=== PATIENT | male | born 1995 | race Caucasian/White ===

== ENCOUNTER 2017-01-28 08:18 | Emergency (ER) | payer OTHER ==
[~2017-01-28 08:18] MED LIST: CELEXA PO; EFFEXOR75 M3 PO; FLEXERIL PO; FLEXERIL10 MG PO; IBUPROFEN800 MG PO; LOSARTAN POTASS25 MG; MAGIC MOUTH WASH PO; MOTRIN100 MG PO; MULTI VITAMIN1 EACH PO; NAPROXEN PO; PRILOSEC20 M1 PO; ROBITUSSIN S/F118 ML PO; TOPROL XL100 MG; VOLTAREN75 MG PO; ZITHROMAX PO
[2017-02-17] MEDS ORDERED: TRIAMTERENE-HC1 EAC1 (22:00)
== END 2017-01-28 08:51 | disposition home or self-care (01) ==
LOC: SED 08:18
DX: R04.0 Epistaxis (principal); I10 Essential (primary) hypertension; Z88.0 Allergy status to penicillin; Z88.2 Allergy status to sulfonamides; Z79.899 Other long term (current) drug therapy
CPT/HCPCS: 30901; 99283

== ENCOUNTER 2017-02-17 22:47 | Emergency (ER) | payer OTHER ==
--- NOTE | ~2017-02-17 | CR63 ---
[facility] A Service of [facility] RADIOLOGY TEXT RESULTS PATIENT: SANJUANITA VELA LOCATION: SED : 94 UNIT #: [id number] AGE: [address]: PAIGE MELISSA SEX: M ORDER DR: [id number] [place] [address] [id number] E MR#: [id number] Acc #: [id number] NAME: SANJUANITA VELA : 1995 SEX: M STUDY DATE/TIME: 02/17/2017 22:57 UNIT: SED ROOM: STUDY DESCRIPTION: CR Chest 2 View Attending Physician: Paige Melissa Ordering Physician: Physician Non-Staff Primary Care Physician: Carmella Zhang M.D. MEDICAL IMAGING REPORT This report is preliminary unless electronic signature is present. EXAM Chest x-ray, 02/17/2017. HISTORY A 21-year-old male in the ED complaining of 2-month history of cough with lower back pain and vomiting. TECHNIQUE PA and lateral upright chest series. FINDINGS The examination is negative. The lungs are expanded and clear. No visible pulmonary infiltrate or pleural effusion. Heart size and pulmonary vascularity are within normal limits. IMPRESSION Negative chest. The lungs are clear. No change since 01/05/2017. Dictated by... Ronn Pierre M.D. THIS IS AN ELECTRONICALLY VERIFIED REPORT Ronn Pierre M.D. at 02/18/2017 9:53 PM BOSSMAN/rivera TD: 02/18/2017 06:39 JOB #: [id number] MEDICAL IMAGING REPORT [facility] A Service of [facility] RADIOLOGY TEXT RESULTS PATIENT: SANJUANITA VELA LOCATION: SED : 94 UNIT #: [id number] AGE: [address]: PAIGE MELISSA SEX: M ORDER DR: Page 1 of 1
[~2017-02-17 22:47] MED LIST changes: +TRIAMTERENE-HC1 EAC1
[2017-02-17 23:20] LABS: BASOPHIL# 0.1 X10e3 (0-0.3); BASOPHIL% 0.7 % (0-2.5); EOSINOPHIL# 0.4 X10e3 (0-0.7); HEMATOCRIT 48.2 % (38.0-50.0); HEMOGLOBIN 16.2 gm/dL (13.0-16.0); LYMPHOCYTE# 4.9 X10e3 (1.0-3.5); LYMPHOCYTE% 35.8 % (17.0-45.0); MEAN CELL VOLUME 84.5 FL (83-96); MEAN CORPUSCULAR HEMOGLOBIN 28.4 PG (28-34); MEAN CORPUSCULAR HGB CONC 33.6 g/dL (30-36); MEAN PLATELET VOLUME 7.5 FL (6.5-11.5); MONOCYTE# 1.1 X10e3 (0-1.0); MONOCYTE% 7.8 % (3.0-12.0); NEUTROPHIL# 7.2 X10e3 (1.5-7.1); NEUTROPHIL% 52.7 % (40-75); PLATELET COUNT 351 X10e3 (140-420); RED CELL DISTRIBUTION WIDTH 12.5 % (11.0-15.5); WHITE BLOOD COUNT 13.7 X10e3 (4.0-10.5)
[2017-02-17 23:24] LABS: DIFF IND NO
[2017-02-17 23:38] LABS: BLOOD UREA NITROGEN 19 mg/dL (9-23); BUN/CREATININE RATIO 21.11; CALCIUM SERUM 9.5 mg/dL (8.4-10.2); CARBON DIOXIDE 24 mmol/L (22-31); CHLORIDE 98 mmol/L (100-111); CREATININE SERUM 0.9 mg/dL (0.6-1.4); GLOM FILT RATE Estimated ABOVE60 mL/min (>60); GLUCOSE FASTING 112 mg/dL (70-110); POTASSIUM 3.3 mmol/L (3.5-5.1); SODIUM 134 mmol/L (135-145)
[2017-02-18 00:32] LABS: URINE SOURCE CLEAN CATCH
[2017-02-18 00:45] LABS: MICRO INDICATED? NO; URINE APPEARANCE CLEAR; URINE BILIRUBIN NEG (NEG); URINE BLOOD NEG (NEG); URINE COLOR YELLOW; URINE GLUCOSE NEG (NORM); URINE KETONE NEG (NEG); URINE LEUKOCYTE ESTERASE NEG (NEG); URINE NITRATE NEG (NEG); URINE PROTEIN NEG (NEG); URINE UROBILINOGEN 0.2 MG/DL (NORM)
== END 2017-02-18 01:14 | disposition home or self-care (01) ==
LOC: SED 22:47
PROVIDERS: Physician Assistant
DX: J45.901 Unspecified asthma with (acute) exacerbation (principal); I10 Essential (primary) hypertension; F32.9 Major depressive disorder, single episode, unspecified; F17.210 Nicotine dependence, cigarettes, uncomplicated; Z79.899 Other long term (current) drug therapy; Z88.0 Allergy status to penicillin; Z88.2 Allergy status to sulfonamides
CPT/HCPCS: 36415; 71020; 80048; 81003; 85025; 94640; 96374; 99283; J2405

== ENCOUNTER 2017-06-27 11:56 | Emergency (ER) | payer OTHER ==
--- NOTE | ~2017-06-27 | CT16 ---
[facility]. [facility] A Service of [facility] RADIOLOGY TEXT RESULTS PATIENT: SANJUANITA VELA LOCATION: SED : 94 UNIT #: [id number] AGE: [address]: Marshall Brown MD SEX: M ORDER DR: [id number] [address] [address] [id number] E MR#: [id number] Acc #: [id number] NAME: SANJUANITA VELA : 1995 SEX: M STUDY DATE/TIME: 06/27/2017 14:02 UNIT: SED ROOM: STUDY DESCRIPTION: CT Angio Chest for PE Attending Physician: Marshall Brown M.D. Ordering Physician: Marshall Brown M.D. Primary Care Physician: Carmella Zhang M.D. MEDICAL IMAGING REPORT This report is preliminary unless electronic signature is present. EXAM Angiography CT of the chest, PE protocol, 06/27/2017 INDICATIONS Chest pain and itchy, swollen hands that began this morning. Elevated D-dimer. Elevated white count. History of asthma and hypertension. TECHNIQUE Contrast-enhanced CT scan of the chest PE protocol was performed with 3-D reformats. This CT exam was performed with one or more of the following radiation dose reduction techniques: Automatic exposure control, adjustment of mA and/or kV according to patient size, and iterative reconstruction. No comparisons. FINDINGS CT CHEST: IV bolus suboptimal. The majority of the contrast bolus is in the systemic arterial system. Aorta demonstrates no aneurysm or dissection. There is no large filling defect in the main, left or right central pulmonary arteries. Beyond the first and proximal second-order branches, the pulmonary arteries are not well opacified or assessed. Reactive appearing mediastinal nodes. Residual thymic tissue. Probable reactive axillary nodes. Included upper abdomen negative. Lungs demonstrate no effusion. There are ground-glass areas of consolidation in the lower lobes, left greater than right. There is also patchy involvement of the lingula and right upper lobe. Imaging features nonspecific but likely reflecting areas of multifocal alveolitis. Differential also includes areas of atypical edema or hemorrhage, but those are considered less likely. Imaging followup to resolution after appropriate therapy is recommended. No suspicious bone lesion. IMPRESSION 1. Suboptimal bolus timing but no evidence of PE in the central pulmonary arterial tree. Aorta demonstrates no aneurysm or STS. [facility] A Service of [facility] RADIOLOGY TEXT RESULTS PATIENT: SANJUANITA VELA LOCATION: SED : 94 UNIT #: [id number] AGE: [address]: Marshall Brown MD SEX: M ORDER DR: dissection. 2. Ground-glass consolidation in the lower lobes, left greater than right, with patchy involvement of the lingula and right upper lobe. Imaging features suggest multifocal ground-glass areas of alveolitis or pneumonitis. Imaging followup to resolution recommended. 3. Upper abdomen demonstrates no acute finding. Dictated by... Papito Elizabeth M.D. THIS IS AN ELECTRONICALLY VERIFIED REPORT Papito Elizabeth M.D. at 06/28/2017 11:41 AM TERA/singh TD: 06/27/2017 22:55 JOB #: [id number] MEDICAL IMAGING REPORT Page 1 of 1
--- NOTE | ~2017-06-27 | EKG ---
PATIENT: SANJUANITA VELA UNIT #: [id number] Ventricular Rate: 81 BPM Atrial Rate: 81 BPM P-R Interval: 142 ms QRS Duration: 90 ms Q-T Interval: 400 ms QTC Calculation(Bezet): 464 ms P [place]: 59 degrees Calculated R [place]: 58 degrees Calculated T [place]: 47 degrees Diagnosis Line: Normal sinus rhythm Diagnosis Line: Normal ECG Diagnosis Line: When compared with ECG of 21-AUG-2014 09:58, Diagnosis Line: Nonspecific T wave abnormality, improved in Diagnosis Line: Inferior leads Diagnosis Line: Nonspecific T wave abnormality no longer evident Diagnosis Line: in Anterolateral leads Diagnosis Line: Confirmed by TIAGO MCCLURE MD ([id number]) on Diagnosis Line: 06/28/2017 3:25:36 PM INTERPRETING MD: REN GONG
--- NOTE | ~2017-06-27 | CR72 ---
[facility] A Service of [facility] RADIOLOGY TEXT RESULTS PATIENT: SANJUANITA VELA LOCATION: SED : [birth year] UNIT #: [id number] AGE: [address]: Marshall Brown MD SEX: M ORDER DR: [id number] [place] [address] [id number] E MR#: [id number] Acc #: [id number] NAME: SANJUANITA VELA : 1995 SEX: M STUDY DATE/TIME: 06/27/2017 12:46 UNIT: SED ROOM: STUDY DESCRIPTION: CR Chest Single View Portable Attending Physician: Marshall Brown M.D. Ordering Physician: Marshall Brown M.D. Primary Care Physician: Carmella Zhang M.D. MEDICAL IMAGING REPORT This report is preliminary unless electronic signature is present. EXAM Portable chest INDICATION Chest pain and shortness of air since this morning. PROCEDURE Frontal view chest. COMPARISON 02/17/2017 FINDINGS Heart size is normal. No dense consolidation, pleural fluid or pneumothorax. IMPRESSION No active process. Dictated by... Bobby Stevens M.D. THIS IS AN ELECTRONICALLY VERIFIED REPORT Bobby Stevens M.D. at 06/29/2017 5:02 PM EED/vanessa TD: 06/27/2017 22:25 JOB #: [id number] MEDICAL IMAGING REPORT [facility] A Service of [facility] RADIOLOGY TEXT RESULTS PATIENT: SANJUANITA VELA LOCATION: SED : [birth year] UNIT #: [id number] AGE: [address]: Marshall Brown MD SEX: M ORDER DR: Page 1 of 1
[2017-06-27 13:20] LABS: BASOPHIL# 0.1 X10e3 (0-0.3); BASOPHIL% 0.5 % (0-2.5); EOSINOPHIL# 2.8 X10e3 (0-0.7); EOSINOPHIL% 16.1 % (0.0-7.0); HEMATOCRIT 45.9 % (38.0-50.0); HEMOGLOBIN 16.3 gm/dL (13.0-16.0); LYMPHOCYTE# 3.3 X10e3 (1.0-3.5); LYMPHOCYTE% 18.9 % (17.0-45.0); MEAN CORPUSCULAR HEMOGLOBIN 29.5 PG (28-34); MEAN CORPUSCULAR HGB CONC 35.5 g/dL (30-36); MEAN PLATELET VOLUME 7.5 FL (6.5-11.5); MONOCYTE# 0.9 X10e3 (0-1.0); MONOCYTE% 5.2 % (3.0-12.0); NEUTROPHIL# 10.4 X10e3 (1.5-7.1); NEUTROPHIL% 59.3 % (40-75); PLATELET COUNT 296 X10e3 (140-420); RED BLOOD COUNT 5.54 X10e (3.90-5.60); RED CELL DISTRIBUTION WIDTH 13.1 % (11.0-15.5); WHITE BLOOD COUNT 17.5 X10e3 (4.0-10.5)
[2017-06-27 13:33] LABS: POC - CKMB 2.2 ng/mL (0.0-7.9); POC - TROPONIN <0.05 ng/mL (<=0.05)
[2017-06-27 13:34] LABS: DIFF IND NO
[2017-06-27 13:39] LABS: INR 1.1; PROTHROMBIN TIME (PATIENT) 12.2 SECONDS (9.5-12.4)
[2017-06-27 13:45] LABS: ALBUMIN SERUM 4.4 g/dL (3.5-5.0); ALKALINE PHOSPHATASE 99 U/L (32-92); ALT (SGPT) 22 U/L (10-40); AST (SGOT) 19 U/L (10-42); BILIRUBIN,TOTAL 0.7 mg/dL (0.2-2.0); BLOOD UREA NITROGEN 13 mg/dL (9-23); BUN/CREATININE RATIO 11.81; CALCIUM SERUM 9.3 mg/dL (8.4-10.2); CARBON DIOXIDE 25 mmol/L (22-31); CHLORIDE 103 mmol/L (100-111); CREATININE SERUM 1.1 mg/dL (0.6-1.4); GLOM FILT RATE Estimated 94.1 mL/min (>60); GLUCOSE FASTING 112 mg/dL (70-110); POTASSIUM 3.7 mmol/L (3.5-5.1); PROTEIN TOTAL SERUM 7.8 g/dL (6.0-8.3); SODIUM 136 mmol/L (135-145)
[2017-06-27 13:46] LABS: PARTIAL THROMBOPLASTIN TIME 29.6 SECONDS (25.6-38.1)
[2017-06-27 13:48] LABS: BILIRUBIN, DIRECT <0.1 mg/dL (0.0-0.2); BILIRUBIN,INDIRECT 0.6 mg/dL (0.0-0.9)
[2017-06-27 14:28] LABS: POC - CKMB <1.0 ng/mL (0.0-7.9)
[2017-06-27 14:29] LABS: POC - TROPONIN <0.05 ng/mL (<=0.05)
== END 2017-06-27 15:05 | disposition home or self-care (01) ==
LOC: SED 11:56
PROVIDERS: Emergency Medicine
DX: L25.9 Unspecified contact dermatitis, unspecified cause (principal); J18.9 Pneumonia, unspecified organism; D72.1 Eosinophilia; J44.9 Chronic obstructive pulmonary disease, unspecified; J45.909 Unspecified asthma, uncomplicated; I10 Essential (primary) hypertension; F32.9 Major depressive disorder, single episode, unspecified; E66.9 Obesity, unspecified; F17.210 Nicotine dependence, cigarettes, uncomplicated; Z88.0 Allergy status to penicillin; Z88.2 Allergy status to sulfonamides; Z79.899 Other long term (current) drug therapy
CPT/HCPCS: 36415; 71010; 71275; 80048; 80076; 82553; 83880; 84484; 85025; 85379; 85610; 85730; 93005; 96361; 96374; 96375; 99285; J1200; J2930; Q9967

== ENCOUNTER 2017-07-04 08:04 | Emergency (ER) | payer OTHER ==
[~2017-07-04] VITALS: Ht 188 cm; Wt 112.9 kg
[2017-07-04] MEDS ORDERED: LEVAQUIN (08:11)
== END 2017-07-04 09:28 | disposition home or self-care (01) ==
LOC: SED 08:04
DX: J02.9 Acute pharyngitis, unspecified (principal); J45.909 Unspecified asthma, uncomplicated; F32.9 Major depressive disorder, single episode, unspecified; I10 Essential (primary) hypertension; F17.200 Nicotine dependence, unspecified, uncomplicated; Z88.0 Allergy status to penicillin; Z88.2 Allergy status to sulfonamides; Z79.899 Other long term (current) drug therapy
CPT/HCPCS: 87651; 96372; 99283; J1100